=== PATIENT | female | born 1940 ===

== ENCOUNTER 2023-10-14 05:40 | Inpatient (IN) | payer MEDICARE, MEDICAID, SELFPAY ==
[2023-10-14] VITALS (10 sets, daily range): BP systolic 107–136; BP diastolic 57–86; BMI 27.3; BMI 26.4
[2023-10-14 03:40] LABS: % Basophils 0.9 % (0-2); % Eosinophils 4.4 % (0-6); % Immature Granulocytes 0.3 % (0-0.5); % Neutrophils 60.4 % (42.2-75.2); Absolute Basophils 0.1 10^3/uL (0-0.2); Absolute Eosinophils 0.3 10^3/uL (0-0.7); Absolute Monocytes 0.6 10^3/uL (0.1-0.6); Absolute Neutrophils 4.6 10^3/uL (1.4-6.5); Hematocrit 34.7 % (37.0-47.0); Hemoglobin 11.8 g/dL (12.0-16.0); Mean Corpuscular Volume 88.3 fL (81.0-99.0); Mean Platelet Volume 9.8 fL (7.4-10.4); Nucleated Red Blood Cells % 0 %; Platelet Count 289 10^3/uL (130-400); Red Blood Cell Count 3.93 10^6/uL (4.20-5.40); Red Cell Dist. Width 14.2 % (11.5-14.5); White Blood Cell Count 7.6 10^3/uL (4.8-10.8)
[2023-10-14 03:54] LABS: ALT (SGPT) 22 U/L (0-35); AST (SGOT) 42 U/L (14-36); Albumin 4.1 g/dl (3.5-5.0); Alkaline Phosphatase 78 U/L (38-126); Blood Urea Nitrogen 34 mg/dl (7-17); Calcium 9.7 mg/dl (8.4-10.2); Carbon Dioxide 23 mmol/L (22-30); Chloride 107 mmol/L (98-107); Estimated Creatinine Clearance 30 ml/min; Glucose 146 mg/dl (70-99); Potassium 4.2 mmol/L (3.5-5.1); Sodium 138 mmol/L (135-145); Total Bilirubin 0.5 mg/dl (0.2-1.3); Total Protein 7.4 g/dl (6.3-8.2)
[2023-10-14 04:00] LABS: Troponin I 0.613 ng/ml
[2023-10-14] MEDS: NITRO-BID 1 INCH TOPICAL (04:24)
[2023-10-14] MEDS: LOW STRENGTH ASPIRIN 324 MG PO (04:25)
[2023-10-14 04:29] LABS: APTT 30.7 Sec (23.4-35.0)
--- NOTE | 2023-10-14 04:46 | ED.GENMED ---
History of Present Illness
General
Chief Complaint: Chest Problem
Source: patient, ambulance crew and assisted
Exam Limitations: dementia
Time Seen by Provider: 10/14/23 03:30
Nursing documentation reviewed up to this point in time: agreed with
Travel History
Have you had any contact with someone who has COVID-19?: No
Do you have any symptoms of coronavirus? Fever > 100 degrees, chills, cough, shortness of breath, sore throat, loss of taste or smell, muscle aches, or headache?: No
History of Present Illness
History of Present Illness:
This is an 83-year-old woman with history of hypertension, hyperlipidemia, bvs-sfftmjv-nawbfhmet diabetes as well as history of dementia. Current resident of local assisted since April of this year.
She is sent to the ED by assisted staff after patient complained of severe chest pain. Upon EMS arrival patient offers no complaints to EMS and she remains chest pain-free since arrival to the ED.
She denies shortness of breath, denies chest pain currently, denies nausea, denies neck nor back pain.
According to assisted records no prior history of CAD.
Patient believes she may have had a previous episode of similar chest pain but cannot recall but currently denies chest pain.
According to assisted records she is DNR status.
Past History
Past History
ED Past Medical History: CVA, HTN, Hypercholesterolemia, NIDDM, Renal failure (Chronic kidney disease stage III), Psychiatric and Other (Overactive bladder, dementia, peripheral vascular disease)
Social History
Tobacco: Non-smoker
Living: assisted
Family History
Family History: Other (Noncontributory)
Phy Exam
Physical Exam
Physical Exam:
GENERAL: 83-year-old somewhat frail appearing woman is bright and alert, pleasant, appears in no acute distress. She is answering yes and no questions appropriately and is easily conversant.
EYE: anicteric
NECK: Supple, nontender, no meningismus, no significant adenopathy. No JVD.
ENT: oral mucosa is moist. No rhinorrhea.
CARDIAC: Regular rate and rhythm. no murmur.
LUNGS: Mildly decreased breath sounds at bases otherwise lungs are clear to auscultation, no acute respiratory distress
ABDOMEN: Rotund, soft, nondistended, without focal tenderness, no r/g, normoactive BS.
NEUROLOGICAL: Alert and oriented x1, no focal neuro deficits.
SKIN: Warm and dry, minimally pale in color, skin intact. No rash.
MUSCULOSKELETAL: Trace pretibial edema bilateral lower extremities, peripheral pulses are full and equal b/l. No palpable tenderness.
PSYCH: Normal and appropriate interaction.
Scores
Heart Score for Chest Pain Patients
STEMI patient?: No
History: Moderately Suspicious
ECG: Significant ST-Depression
Age: >/= 65 years
Risk Factors: >/= 3 Risk Factors or History of CAD
Troponin: >/= 3 x Normal Limit
Heart Score for Chest Pain Patients: 9
Heart Score Risk: 72.7 % MACE over next 6 weeks
Course
Orders/Labs/Results
Orders:
Orders
10/14/23 03:06
Electrocardiogram (*1) Urgent
Reason for Study: Chest Pain
Cardiac Monitoring- Treatment ONCE
EKG- Treatment ONCE
10/14/23 03:13
CMP [Comprehensive Metabolic Panel] Urgent
Complete Blood Count/With Diff Urgent
NT-proBNP Urgent
Comment: ADD ON
Troponin I Urgent
10/14/23 04:08
PTT Urgent
10/14/23 04:13
Aspirin Chewable [Low Strength Aspirin] 324 mg PO NOW STA
Nitroglycerin Ointment [Nitro-Bid] 1 inch TOPICAL NOW STA
10/14/23 04:15
Electrocardiogram (*1) Urgent
Reason for Study: Chest Pain
EKG- Treatment ONCE
CR Chest - 2 Views Urgent
Comment:
Reason For Exam: CP
10/14/23 04:32
Add On- LAB Urgent
Tests Added?: BNP
10/14/23 04:40
Heparin 4,000 units IV NOW STA
10/14/23 04:[address] Non Medication Order As Directed
Physician Order: PTT 6 hours after initial start of Heparin infusion
Above order entered?: Yes
10/14/23 04:45
Heparin 45398 Units/250 ml 25,000 units in 250 ml IV PER PROTOCOL
Weight to be used for heparin protocol in kilograms (kg):: 70
Protocol:: Cardiac Tx/Acute Coronary
PTT Goal Range to be used:: PTT 73 to 111 seconds
Order type:: Initial
INITIAL Infusion Dose (UNITS/KG/hr) & then follow protocol:: 12 units/kg/hr
Infusion Dose in UNITS/hr & then follow protocol (UNITS/hr):: 850
INFUSION RATE in mL/hr & then follow protocol (mL/hr):: 8.5
PTT less than or equal to 64 seconds:: Increase rate by 200 units/hr (+ 2 mL/hr)
PTT 64.1 to 72.9 seconds:: Increase rate by 100 units/hr (+ 1 mL/hr)
PTT 73 to 111 seconds:: Target Range. No change in rate.
PTT 111.1 to 130.9 seconds:: Decrease rate by 100 units/hr (- 1 mL/hr)
PTT 131 to 199.9 seconds:: HOLD for 1 hr. Then decrease rate by 200 units/hr (- 2 mL/hr)
PTT greater than or equal to 200 seconds:: HOLD for 2 hrs & Notify Provider. Then decrease by 200 units/hr (-
2 mL/hr)
Lab follow-up:: Each change, PTT q6h until 2 consecutive are therapeutic. Then PTT
daily.
10/14/23 05:19
Admit/Transfer Patient As Directed
Co-Sign Provider:
Level of Care: Inpatient admission
Assign to:: IVU
Physician / Group: [email or web address]
Diagnosis: acute NSTEMI
Reason for Hospitalization: acute NSTEMI
Expected length of stay greater than two midnights?: Yes
ELOS- Estimated Length of Stay in days: 3
I certify the patient meets the requirements for IP care: Yes
10/14/23 05:21
Code Status As Directed
Resuscitation Status: Full Code
10/14/23 05:26
Code Status As Directed
Resuscitation Status: Do not resuscitate
Based on pt advanced directive or healthcare POA form: Yes
DNR Bracelet Application ONCE
10/14/23 11:15
PTT Urgent
Abnormal Lab Results
10/14/23
03:13
RBC 3.93 L 10^6/uL
(4.20-5.40)
Hgb 11.8 L g/dL
(12.0-16.0)
Hct 34.7 L %
(37.0-47.0)
BUN 34 H mg/dl
(7-17)
Creatinine 1.3 H mg/dL
(0.6-1.0)
Glucose 146 H mg/dl
(70-99)
AST 42 H U/L
(14-36)
Troponin I 0.613 H* ng/ml
10/14/23 03:13
10/14/23 03:13
Vital Signs
Initial and Last Documented VS:
Initial Vital Signs
Temp Pulse Resp BP Pulse Ox
98 F 67 12 132/73 97
10/14/23 03:10 10/14/23 03:10 10/14/23 03:10 10/14/23 03:10 10/14/23 03:10
Last Documented Vital Signs
Temp Pulse Resp BP Pulse Ox
98 F 64 12 136/61 96
10/14/23 03:10 10/14/23 04:24 10/14/23 03:10 10/14/23 04:24 10/14/23 03:43
MDM/Problems Addressed
Differential Diagnosis Includes:
Elderly assisted patient with history of dementia presents via EMS with reported complaints of chest pain. She remains chest pain-free for EMS and since arrival to the ED.
EKG concerning for minimal ST segment elevation inferiorly without reciprocal changes. No old EKGs to compare.
It is reassuring the patient is chest pain-free but there is certainly concern for acute coronary syndrome. Other consideration is GERD, pneumonia, CHF, musculoskeletal pain.
Labs are pending.
Chronic conditions affecting care: DM, HTN, Neurological disorder, Kidney disease and Other (Hyperlipidemia)
*Radiology
Radiology exam reviewed: preliminary read by ED provider (Chest x-ray is unremarkable. No old films to compare.)
*Pulse Oximetry
Patient hypoxic: yes
*EKG
Interpreted by ED Provider?: Yes
Interpretation: abnormal
Comparison EKG: no comparison EKG present
Rate: normal
Rhythm: sinus
[place]: normal axis
Interval: normal interval
QRS Pattern: other (Incomplete right bundle branch block)
Ischemia: ST elevation ( Minimal ST segment elevation inferiorly without reciprocal changes.)
*Pie Baker Interpretation
Rate: normal
Interpretation: normal
Rhythm: sinus
*Critical Care Note
Total Time (30-74mins, 75-104mins- exclusive of procedures): 30
comment:
Critical care statement: A total of 30 minutes of critical care time was provided for this patient. This includes management of unstable vital signs, evaluation of the patient at bedside, reviewing the patient's pertinent medical records, discussion
with consultants, review of old EKGs and review of pertinent medical records. This time with separate from time utilized to perform the aforementioned documented procedures
Update Note
Update Note:
Troponin is elevated at 0.613 consistent with non-STEMI.
Patient remains chest pain-free and comfortable.
She is noted to be mildly hypoxic more so with sleeping, nasal cannula oxygen initiated. She denies shortness of breath and lungs are clear to auscultation however not taking good deep breath.
Chest x-ray is pending. Will add BNP.
Case discussed with cardiology as well as cardio invasive. As patient is pain-free, advanced age, DNR status and borderline EKG, Dr. Duran recommends conservative management.
Patient has been given 324 mg chewable aspirin and Nitropaste initiated. Will initiate IV heparin.
Due to multiple medical issues, cardiology request patient be admitted to hospitalist service with consult to cardiology.
ED Attending Note
-
Portions of this chart may have been created with voice recognition software.� Occasional wrong word or��sound alike� substitutions may have occurred due to the inherent limitations of voice recognition software.
Discharge Plan
Departure
Patient Disposition: Admit
Date of Disposition: 10/14/23
Time of Disposition: 04:56
Admit to: IVU
Admit to doctor: Nadegey
Presentation/result/management discussed w/ accepting MD/DO: Hospitalist
Condition: Serious
Discharge Problem:
Acute non-ST elevation myocardial infarction (NSTEMI)
Interventions
Interventions:
*Risk Screen - Suicide Last Done: 10/14/23 03:10
*General Assessment Last Done: 10/14/23 03:10
*Neglect/Abuse Screening Last Done: 10/14/23 03:10
ED- Fall Risk Assessment Last Done: 10/14/23 03:43
*ED COVID-19 Vaccine History Last Done: 10/14/23 03:10
ED- Cardiac Assessment Last Done: 10/14/23 03:43
ED- Pulmonary Assessment Last Done: 10/14/23 03:43
[2023-10-14] MEDS: HEPARIN 4000 UNITS IV (05:09)
[2023-10-14] MEDS: HEPARIN 25000 UNITS/250 ML IV (05:10)
[2023-10-14 05:15] LABS: NT-proBNP 544 pg/ml
--- NOTE | 2023-10-14 05:27 | HPS.HSE ---
Family Physician
-
Family Physician: Dion Rabago, DO
Chief Complaint
-
CP
History of Present Illness
HPI
83F [facility] Res with Dementia [facility] HX CVA, HTN, HLD, T2DM , CKD3b pw severe chest pain. Upon EMS arrival patient offers no complaints. She remains chest pain-free since arrival to the ED.
[facility] to [facility] no prior history of CAD.
According to [facility] records she is DNR status.
ROS
No shortness of breath
Denies chest pain currently, denies nausea, denies neck nor back pain.
Medical History
Past Medical History
Past Medical History: Reports Other (CVA, HTN, Hypercholesterolemia, NIDDM, Renal failure (Chronic kidney disease stage III), )
Past Surgical History: Reports Other
Additional Past Surgical History:
(Overactive bladder, dementia, peripheral vascular disease)
Social History
Tobacco: Non-smoker
Living: [facility]
Family History
Family History: Not pertinent
Allergies / Home Medications
Allergies reflects when Allergies were last updated in [facility].
Home Medications with original date entered in [facility]
Allergy/Medication List:
Allergies
Allergy/AdvReac Type Severity Reaction Status Date / Time
No Known Allergies Allergy Unverified 10/14/23 03:34
Home Medications
acetaminophen 325 mg tablet 650 mg PO Q4H PRN pain/fever 10/14/23
bisacodyl 10 mg rectal suppository 10 mg NJ DAILY PRN no BM 10/14/23
escitalopram oxalate 10 mg tablet 10 mg PO DAILY 10/14/23
gabapentin 100 mg capsule 100 mg PO DAILY 10/14/23
lorazepam 0.5 mg tablet (Ativan) 0.5 mg PO TID PRN anxiety 10/14/23
magnesium hydroxide 400 mg/5 mL oral suspension (Milk of Magnesia) 15 ml PO HS PRN constipation 10/14/23
mirtazapine 15 mg tablet 15 mg PO DAILY 10/14/23
pravastatin 20 mg tablet 20 mg PO DAILY 10/14/23
vibegron 75 mg tablet 75 mg PO DAILY 10/14/23
Review of Systems
-
Constitutional: Reports No Symptoms
EENT: Reports No Symptoms
Respiratory: Reports No Symptoms
Cardiac: Reports Chest Pain
Abdomen/GI: Reports No Symptoms
: Reports No Symptoms
Musculoskeletal: Reports No Symptoms
Skin: Reports No Symptoms
Neurological: Reports No Symptoms
Endocrine: Reports No Symptoms
Hematologic/Lymphatic: Reports No Symptoms
Psych: Reports No Symptoms
Physical Exam
Vital Signs
Vital Signs
Temp Pulse Resp BP Pulse Ox
98 F 64 12 136/61 96
10/14/23 03:10 10/14/23 04:24 10/14/23 03:10 10/14/23 04:24 10/14/23 03:43
Physical Exam
General: Other (see below )
Laboratory Results
-
10/14/23 03:13
10/14/23 03:13
Laboratory Results
APTT 30.7 Sec (23.4-35.0) 10/14/23 04:08
Total Bilirubin 0.5 mg/dl (0.2-1.3) 10/14/23 03:13
AST 42 U/L (14-36) H 10/14/23 03:13
ALT 22 U/L (0-35) 10/14/23 03:13
Alkaline Phosphatase 78 U/L (38-126) 10/14/23 03:13
Troponin I 0.613 ng/ml H* 10/14/23 03:13
Data Reviewed
-
Medical Tests (Nuc Med, Echo, EKG etc): Report Reviewed by me
Lab Data: Labs Reviewed by me
Impression/Plan
-
Reviewed VS: unremarkable
PE
Gen: NAD
HEENT: anicteric , no pallor
Neck: supple , no JVD
Lungs: symmetric AE
Cor: RRR S1 S2
Abdomen: soft abdomen , NT NG
INTAKE ASSESSOR: Alert
MS: edema
Psych: pleasantly confused
Data
Hgb 11.8
BUN 34
Cr 1.3 - was 1.5 om 04/16/23 CKD3b
eGFR 40
TPNI 0.613
EKG:
SINUS RHYTHM WITH 1ST DEGREE A-V BLOCK
INCOMPLETE RIGHT BUNDLE BRANCH BLOCK
INFERIOR INFARCT , AGE UNDETERMINED
ABNORMAL ECG
WHEN COMPARED WITH ECG OF 14-OCT-2023 03:10,
INFERIOR INFARCT IS NOW PRESENT
CXR pending report - no gross PNA by my view
No prior hospitalist admission:
ASSESSMENT & PLAN
Acute NSTEMI - currently CP free
ER initiated ASA and Heaprin gtt and consulted Card / Dr Duran
- cont. ASA and Heparin gtt
- cont. NTP
- on TOUR COUNSELOR Pravastatin
- ECHO
- NPO in case cariac cath '
Chronic condition:
CVA; Not active
Essential HTN: stable
Hypercholesterolemia on Stain
NIDDM: add ISS low
CKD3b
DVT Px: on Heparin gtt
Full code
IVU
--- NOTE | 2023-10-14 06:37 | PTCARENOTE ---
Pt rec'd from ED on stretcher. Disoriented to time and place unable to complete thoughts. bed alarm placed. 2nd troponin and ecg completed. pt denies cp. RA sat 99-100% on 2 lit nc/ O2 removed. IV heparin infusing at 850 units/hr. Adm hx taken from
[facility].
--- NOTE | 2023-10-14 07:45 | CON.CAR ---
Addendum entered and electronically signed by Doc Arizmendi MD 10/14/23 11:00:
I saw and examined the patient.
The Protective Service Specialist's note was reviewed and I agree with the note.
Comment:
GEN: No distress, awake
HEENT: supple, anicteric, mmm
LUNGS: CTA, no wheezes/rales
CV: Reg, S1/S2, 1/6 syst LSB, no gallop
ABD: soft, BS+, NT/ND
EXT: No edema
NEURO: Gross non-focal
SKIN: No rash
Plan:
Patient has a past medical history of dementia, hyperlipidemia, and tobacco abuse who resides at [facility] who presented with chest pains and a non-ST elevation myocardial infarction. Discussions were had with the family and they
prefer a conservative medical treatment plan for her coronary artery disease.
EKG with nonspecific anterior ST abnormalities.
Check echocardiogram.
Continue IV heparin for 24 hours then discontinue. Continue aspirin and Plavix. Would treat with Plavix for 6 months as long as she has no significant bleeding issues. She should continue lifelong aspirin.
Will check lipids would likely switch to high-dose atorvastatin. Goal LDL should be 70 or below.
Continue Toprol 12.5 mg daily. If blood pressure tolerates we will add ROSS inhibitor.
proBNP 544. She has no clear signs of volume overload.
Original Note:
Consultation
Consultation Request
Date/Time Consultation Requested: 10/14/23 at 0614
Date/Time Consultation Performed: 10/14/23 at 0742
Requesting Provider: Dr. Tyler
Performing Provider: Dr. Brennan
Reason for Consultation: NSTEMI
Medical History
-
History of Present Illness:
Patient came to [facility] from [facility] with chest pain and is now admitted with a NSTEMI and cardiology has been consulted. Patient lives at [facility] and has dementia. By review of transfer record, patient complained of chest pain that woke her from sleep very
early this morning. Patient does not usually complain of chest pain. Patient described the pain as an intense burning, but no SOB. [facility] staff called 911 and upon arrival of EMS the patient was pain free. Patient came to [facility] and ECG without ST
elevations, but initial Troponin was 0.613. No recurrence of chest pain since admission. Heparin gtt started in ER and patient was given aspirin 324 mg PO x1. Patient does not recall her episode of chest pain and does not know where she is. Called
and talked with patient's daughter, Hayley, and she reports that patient has dementia and at times thinks her daughter is actually her sister. Aside from significant memory issues the patient does not have much PMH and her daughter denies a h/o
CAD or DM2. Patient takes pravastatin for hyperlipidemia.
PMH:
Hyperlipidemia
Former smoker
Past Medical History
Past Medical History: Other (in HPI)
Past Surgical History: Other (cataracts)
Social History
Tobacco: Former Smoker
Alcohol: None
Drug: None
Living: Jail ([facility])
Family History
Family History: Diabetes
Allergies / Home Medications
Allergy/AdvReac Type Severity Reaction Status Date / Time
No Known Allergies Allergy Unverified 10/14/23 03:34
Medication Instructions Recorded Confirmed Type
acetaminophen 325 mg tablet 650 mg PO Q4H PRN pain/fever 10/14/23 10/14/23 History
bisacodyl 10 mg rectal suppository 10 mg TN DAILY PRN no BM 10/14/23 10/14/23 History
escitalopram oxalate 10 mg tablet 10 mg PO DAILY 10/14/23 10/14/23 History
gabapentin 100 mg capsule 100 mg PO DAILY 10/14/23 10/14/23 History
lorazepam 0.5 mg tablet (Ativan) 0.5 mg PO TID PRN anxiety 10/14/23 10/14/23 History
magnesium hydroxide 400 mg/5 mL 15 ml PO HS PRN constipation 10/14/23 10/14/23 History
oral suspension (Milk of Magnhenrietta)
mirtazapine 15 mg tablet 15 mg PO DAILY 10/14/23 10/14/23 History
pravastatin 20 mg tablet 20 mg PO DAILY 10/14/23 10/14/23 History
vibegron 75 mg tablet 75 mg PO DAILY 10/14/23 10/14/23 History
Review of Systems
-
History Source: Patient and Family (daughter, Hayley, by phone)
All other systems: Negative unless noted
Physical Exam
Vital Signs
Temp Pulse Resp BP Pulse Ox
97.4 F 59 16 128/70 98
10/14/23 06:53 10/14/23 06:53 10/14/23 06:53 10/14/23 06:09 10/14/23 06:53
GEN: NAD. AAO to self, no recollection of events leading up to admission
HEENT: EOMI, MMM
LUNGS: CTA B/L with poor inspiratory effort, no wheezes or rales
CV: Reg, S1/S2, no murmur
ABD: soft, BS+, NT, ND
EXT: No clubbing, cyanosis, lesions or edema B/L
NEURO: Gross non-focal
SKIN: Warm, dry and pink. No rash
Lab Results
10/14/23 03:13
10/14/23 03:13
Troponin I 1.490 ng/ml H* D 10/14/23 06:30
Xoy-L-Gypciwndcmg Pept 544 pg/ml 10/14/23 03:13
Impression / Plan
-
PCP: Dr. Dion Rabago
Cardiology: none
Impression:
Chest pain
NSTEMI, Troponin 1.49 and trending
Hyperlipidemia
Former smoker
Echo 10/14/23: Study pending
Plan:
-Patient came to [facility] from [facility] with chest pain and is now admitted with a NSTEMI and cardiology has been consulted. Patient lives at [facility] and has dementia. By review of transfer record, patient complained of chest pain that woke her from sleep very
early this morning. Patient does not usually complain of chest pain. Patient described the pain as an intense burning, but no SOB. [facility] staff called 911 and upon arrival of EMS the patient was pain free. Patient came to [facility] and ECG without ST
elevations, but initial Troponin was 0.613. No recurrence of chest pain since admission. Heparin gtt started in ER and patient was given aspirin 324 mg PO x1. Patient does not recall her episode of chest pain and does not know where she is. Called
and talked with patient's daughter, Hayley, and she reports that patient has dementia and at times thinks her daughter is actually her sister. Aside from significant memory issues the patient does not have much PMH and her daughter denies a h/o
CAD or DM2. Patient takes pravastatin for hyperlipidemia.
-Talked with patient's daughter, Hayley, for 9 minutes this morning. Reviewed admission thus far including NSTEMI diagnosis. Reviewed pateint's baseline dementia and options for management including medical management which patient's daughter is
agreeable to.
-Trend Troponin to peak
-Patient is pain free. Cont Heparin gtt.
-Start aspirin 81 mg daily, ordered by me
-Start Plavix 75 mg daily for 6 months of therapy. Patient is a DNR and family is agreeable to medical therapy.
-Start Toprol XL 12.5 mg daily and hold for HR less than 50 or SBP less than 100, ordered by me
-Check echo
-Repeat ECG in AM
-Check CVE and continue outpatient dose of pravastatin 20 mg daily for now. Can change statin pending CVE
-Patient is not a candidate for cardiac rehab given baseline dementia and living at [facility].
-Pending BP response to Toprol XL consider adding ROSS
-HgbA1c pending. Patient's daughter denies a h/o DM 2.
[2023-10-14 08:37] LABS: Glycohemoglobin (HgbA1c) 6.6 % (4.0-5.6)
--- NOTE | 2023-10-14 08:37 | PTCARENOTE ---
Rec'd pt from [facility] shift AAOx1 to self only; Pt is confused to time & place at baseline. Pt's VS stable & has no c/o CP at this time. Heparin drip infusing as ordered. IV line wrapped for protection as pt repeatedly is trying remove IV line. Bed
alarm in place & pt making multiple attempts to get OOB unassisted & she is a fall & flight risk. This RN spoke w/pt's son briefly after he rec'd a call from [facility] that pt was admitted. Osvaldo toribio ordered & set up for pt safety. Plan of care
ongoing.
--- NOTE | 2023-10-14 09:08 | W.PN.HOSP.TC ---
Today's Communication/Plan
-
Continue current meds
Assessment / Plan
Assessment / Plan
Gen-awake, alert, not oriented, NAD
HEENT-NC, AT, anicteric, clear oral mm
Neck-supple
CV-reg, no M, +S1/S2
Lungs-clear B/L
Abd-soft, NT, ND
Ext-no edema
Musculoskeletal-no cyanosis, clubbing
Skin-warm and dry
Neuro-grossly non-focal
Psych-calm, cooperative
NSTEMI -continue medical management. Cardiology consulted. No plans for aggressive intervention given her advanced age, dementia. Troponin is still trending up.
Hyperlipidemia -on Pravachol.
History of stroke
Essential hypertension -stable.
DM2 without hyperglycemia - appears to be a new diagnosis for her, although her hemoglobin A1c was 6.6% in April of last year. Given her advanced age and dementia, would manage with diet alone.
Normocytic anemia -suspect chronic. Unclear etiology.
CKD 3b -stable.
Overactive bladder
Dementia, likely Alzheimer's type
PAD
Smoking history
DNR
Dispo -anticipate discharge back to care home tomorrow if she remains stable. Discussed with cardiology.
Anticipated Discharge: Within 24 hours
Subjective/Interval History
-
Date of Service: October 14, 2023
Patient seen and examined. No complaints currently.
Objective Data
-
Labs:
Laboratory Results
10/14/23 10/14/23 10/14/23
03:13 04:08 11:15
WBC 7.6
Hgb 11.8 L
Hct 34.7 L
Plt Count 289
APTT 30.7 Pending
Sodium 138
Potassium 4.2
Chloride 107
Carbon Dioxide 23
BUN 34 H
Creatinine 1.3 H
Glucose 146 H
Calcium 9.7
Total Bilirubin 0.5
AST 42 H
ALT 22
Alkaline Phosphatase 78
Vital Signs:
Vital Signs
Temp Pulse Resp BP Pulse Ox
97.4 F 72 16 129/60 98
10/14/23 06:53 10/14/23 08:30 10/14/23 06:53 10/14/23 06:54 10/14/23 06:53
Review of Systems
-
Unable to obtain full review of systems at this time due to: Dementia
History Source: Patient
All other systems: Reviewed and negative
[2023-10-14 09:22] LABS: Glucose - Point of Care 101 mg/dl (70-99)
[2023-10-14] MEDS: NOVOLOG FLEXPEN-LOW RESISTANCE SC (09:25)
[2023-10-14] MEDS: PRAVACHOL 20 MG PO (09:26)
[2023-10-14] MEDS: LEXAPRO 10 MG PO (09:26)
[2023-10-14] MEDS: NEURONTIN 100 MG PO (09:26)
[2023-10-14] MEDS: REMERON 15 MG PO (09:26)
[2023-10-14] MEDS: TOPROL XL 12.5 MG PO (09:27)
[2023-10-14 09:43] LABS: HDL Cholesterol 35 mg/dl; LDL Cholesterol, Calculated 111 mg/dl; Total Cholesterol 186 mg/dl (50-199); Triglyceride 203 mg/dl (10-149); Very Low Density Lipoprotein 40 mg/dl (0-30)
--- NOTE | 2023-10-14 11:34 | CM ---
Chart reviewed. Patient is currently a resident at [facility]. They are holding her bed. I spoke to the daughter, Hayley, and she will let us know if her brother will be transporting her back or if we will need to set up a
wheelchair van. The patient does not need a covid swab to return. Plan is for the patient to go to [facility]. CM to follow
--- NOTE | 2023-10-14 12:04 | W.PN.UPDATE ---
Update Note
Progress Note Update
Patient's son now present and updated by me. Echo bedside and EF overall preserved. Son is pharmacist so reviewed meds and he was in agreement. Son also tells me that his brother, the patient's son, recently and they did not tell patient
so as to not upset her, but they wonder if she found out.
[2023-10-14 13:11] LABS: Glucose - Point of Care 163 mg/dl (70-99)
[2023-10-14] MEDS: NOVOLOG FLEXPEN-LOW RESISTANCE 1 UNITS SC ×2 (13:45→17:42)
[2023-10-14 14:42] LABS: APTT 70.7 Sec (23.4-35.0)
[2023-10-14 17:16] LABS: Glucose - Point of Care 150 mg/dl (70-99)
[2023-10-14] MEDS: ATIVAN 0.5 MG PO (17:42)
--- NOTE | 2023-10-14 17:51 | PTCARENOTE ---
Pt remains oriented to self only. Pt is beginning to show signs of sundowning & is becoming agitated w/staff calling out for her daughter & stating that her daughter was sent to visit her grandmother & is now missing. Pt states her daughter Emmanuelle
is 6yr old. Pt tearful at times w/concern. Emotional support provided by Rodney pitts & this RN. PRN PO Ativan administered as ordered. Pt OOB in , set up for dinner. Plan of care ongoing.
[2023-10-14 21:48] LABS: Glucose - Point of Care 222 mg/dl (70-99)
[2023-10-15 00:07] LABS: APTT 100.5 Sec (23.4-35.0)
--- NOTE | 2023-10-15 00:52 | PTCARENOTE ---
No complaints CP/discomfort, VSS, NSR on the monitor. Pt. confused and in need of frequent intervention (attempts to get OOB, pulls at monitor & IV). Pleasant and easily re-directed but forgetful. Med-sitter in room; bed alarm on.
[2023-10-15] MEDS: ATIVAN 0.5 MG PO (01:27)
[2023-10-15 01:31] VITALS: BP 139/65
[2023-10-15 06:11] LABS: Hematocrit 37.1 % (37.0-47.0); Hemoglobin 12.1 g/dL (12.0-16.0); Mean Corp Hgb Conc. 32.6 g/dL (33.0-37.0); Mean Corpuscular Hgb 29.7 pg (27.0-31.0); Mean Corpuscular Volume 91.2 fL (81.0-99.0); Mean Platelet Volume 9.9 fL (7.4-10.4); Platelet Count 272 10^3/uL (130-400); Red Blood Cell Count 4.07 10^6/uL (4.20-5.40); Red Cell Dist. Width 14.3 % (11.5-14.5); White Blood Cell Count 8.5 10^3/uL (4.8-10.8)
[2023-10-15 06:36] LABS: ALT (SGPT) 26 U/L (0-35); AST (SGOT) 87 U/L (14-36); Albumin 3.9 g/dl (3.5-5.0); Alkaline Phosphatase 71 U/L (38-126); Blood Urea Nitrogen 27 mg/dl (7-17); Carbon Dioxide 27 mmol/L (22-30); Chloride 103 mmol/L (98-107); Estimated Creatinine Clearance 31 ml/min; Glucose 122 mg/dl (70-99); Potassium 4.4 mmol/L (3.5-5.1); Sodium 140 mmol/L (135-145); Total Bilirubin 0.5 mg/dl (0.2-1.3); Total Protein 7.1 g/dl (6.3-8.2); eGFR 49.24
[2023-10-15 07:43] VITALS: BP 126/63
[2023-10-15 07:46] LABS: Glucose - Point of Care 137 mg/dl (70-99)
--- NOTE | 2023-10-15 08:51 | W.PN.HOSP.TC ---
Addendum entered and electronically signed by Siva Tyler DO 10/15/23 11:22:
I spoke with cardiology team, they are okay with discharge home. Outpatient follow-up.
Original Note:
Today's Communication/Plan
-
Await cardiology input
Assessment / Plan
Assessment / Plan
Gen-awake, alert, not oriented, NAD
HEENT-NC, AT, anicteric, clear oral mm
Neck-supple
CV-reg, no M, +S1/S2
Lungs-clear B/L
Abd-soft, NT, ND
Ext-no edema
Musculoskeletal-no cyanosis, clubbing
Skin-warm and dry
Neuro-grossly non-focal
Psych-calm, cooperative
NSTEMI -continue medical management. Cardiology consulted. No plans for aggressive intervention given her advanced age, dementia. Troponin has peaked. Anticipate discharge on dual antiplatelet therapy. Heparin discontinued. Echocardiogram
shows normal LV function. Indeterminate diastolic function.
Hyperlipidemia -on Pravachol.
History of stroke
Essential hypertension -stable.
DM2 without hyperglycemia - appears to be a new diagnosis for her, although her hemoglobin A1c was 6.6% in April of last year. Given her advanced age and dementia, would manage with diet alone.
Normocytic anemia -suspect chronic. Unclear etiology. Hemoglobin spontaneously improved to 12.1 today.
CKD 3b -stable.
Overactive bladder
Dementia, likely Alzheimer's type
PAD
Smoking history
DNR
Dispo -anticipate discharge back to [facility] today if okay with cardiology.
Anticipated Discharge: Today
Subjective/Interval History
-
Date of Service: October 15, 2023
Patient seen and examined. No complaints.
Objective Data
-
Labs:
Laboratory Results
10/14/23 10/15/23
23:41 05:43
WBC 8.5
Hgb 12.1
Hct 37.1
Plt Count 272
APTT 100.5 H 109.0 H
Sodium 140
Potassium 4.4
Chloride 103
Carbon Dioxide 27
BUN 27 H
Creatinine 1.1 H
Glucose 122 H
Calcium 10.0
Total Bilirubin 0.5
AST 87 H
ALT 26
Alkaline Phosphatase 71
Vital Signs:
Vital Signs
Temp Pulse Resp BP Pulse Ox
97.5 F 65 20 139/65 97
10/15/23 07:40 10/15/23 01:31 10/15/23 07:40 10/15/23 01:31 10/15/23 07:40
I&O
10/14/23 10/15/23 10/16/23
06:59 06:59 06:59
Intake Total 1440 / 1440
Balance 1440 / 1440
Review of Systems
-
Unable to obtain full review of systems at this time due to: Dementia
History Source: Patient
All other systems: Reviewed and negative
[2023-10-15] MEDS: NOVOLOG FLEXPEN-LOW RESISTANCE SC (09:14)
[2023-10-15] MEDS: LEXAPRO 10 MG PO (09:16)
[2023-10-15] MEDS: NEURONTIN 100 MG PO (09:16)
[2023-10-15] MEDS: TOPROL XL 12.5 MG PO (09:16)
[2023-10-15] MEDS: LOW STRENGTH ASPIRIN 81 MG PO (09:16)
[2023-10-15] MEDS: PLAVIX 75 MG PO (09:19)
[2023-10-15] MEDS: REMERON PO (10:00)
[2023-10-15] MEDS: PRAVACHOL PO (10:15)
--- NOTE | 2023-10-15 11:18 | W.PN.CARDCBS ---
Addendum entered and electronically signed by Doc Arizmendi MD 10/15/23 13:16:
I saw and examined the patient.
The [employer] Developer's note was reviewed and I agree with the note.
Comment:
GEN: No distress, awake,
HEENT: supple, anicteric, mmm
LUNGS: CTA, no wheezes/rales
CV: Reg, S1/S2, 1/6 syst LSB, no gallop
ABD: soft, BS+, NT/ND
EXT: No edema
NEURO: Gross non-focal
SKIN: No rash
Plan:
Doing well and no chest pains or shortness of breath. No signs of congestive heart failure. Continue aspirin.
Continue Plavix for 6 months.
Continue Toprol and lisinopril.
Pravastatin switch to atorvastatin 40 mg daily.
Will arrange cardiology follow-up.
Original Note:
Today's Communication / Plan
-
Plavix 75 mg daily for 6 months
Aspirin 81 mg daily lifelong
Toprol XL 12.5 mg daily
lisinopril 2.5 mg daily
Pravastatin changed to atorvastatin 40 mg daily
Will arrange cardiology f/u
Impression / Plan
-
PCP: Dr. Dion Rabago
Cardiology: none
Impression:
Chest pain
NSTEMI, peak Troponin 11.5
Hyperlipidemia
Former smoker
Echo 10/14/23: EF 55-60%, no WMA
Plan:
-Patient has not complained of chest pain since admission, but admittedly has underlying dementia and is not a good historian. Troponin peaked at 11.5. EF preserved by echo. No arrhythmia on tele.
-Patient's son and daughter are in the room 10/15/23 AM. Updated both at patient's bedside. Reviewed medication changes including addition of Toprol XL 12.5 mg daily.
-Also new to lisinopril 2.5 mg daily starting 10/15/23, will need BMP in 1 week.
-New to aspirin 81 mg daily and Plavix 75 mg daily this admission. Will plan on DAPT with aspirin and Plavix 75 mg daily for 6 months (until 04/14/24) then stop Plavix, but continue with aspirin alone.
-LDL 111. Outpatient dose of pravastatin transitioned to atorvastatin 40 mg daily. Check CVE and CMP in 3 months.
-Patient is not a candidate for cardiac rehab given baseline dementia and living at [facility].
-HgbA1c 6.6%. Patient's daughter denies a h/o DM 2.
-Patient is stable for transfer back to [facility] 10/15/23. Will arrange for cardiology f/u
HPI: Patient came [facility] from [facility] with chest pain and is now admitted with a NSTEMI and cardiology has been consulted. Patient lives at [facility] and has dementia. By review of transfer record, patient complained of chest pain that woke her from sleep
very early this morning. Patient does not usually complain of chest pain. Patient described the pain as an intense burning, but no SOB. [facility] staff called 911 and upon arrival of EMS the patient was pain free. [facility] and ECG without ST
elevations, but initial Troponin was 0.613. No recurrence of chest pain since admission. Heparin gtt started in ER and patient was given aspirin 324 mg PO x1. Patient does not recall her episode of chest pain and does not know where she is. Called
and talked with patient's daughter, Hayley, and she reports that patient has dementia and at times thinks her daughter is actually her sister. Aside from significant memory issues the patient does not have much PMH and her daughter denies a h/o
CAD or DM2. Patient takes pravastatin for hyperlipidemia.
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
Subjective
Date of Service: October 15, 2023
No complaints
Objective
Labs:
10/15/23 05:43
10/15/23 05:43
Labs
Hgb 12.1 g/dL (12.0-16.0) 10/15/23 05:43
Hct 37.1 % (37.0-47.0) 10/15/23 05:43
Plt Count 272 10^3/uL (130-400) 10/15/23 05:43
APTT 109.0 Sec (23.4-35.0) H 10/15/23 05:43
Sodium 140 mmol/L (135-145) 10/15/23 05:43
Potassium 4.4 mmol/L (3.5-5.1) 10/15/23 05:43
BUN 27 mg/dl (7-17) H 10/15/23 05:43
Creatinine 1.1 mg/dL (0.6-1.0) H 10/15/23 05:43
Glucose 122 mg/dl (70-99) H 10/15/23 05:43
Troponins
10/14/23 10/14/23 10/14/23
03:13 06:30 09:03
Troponin I 0.613 H* 1.490 H* D 4.210 H* D
10/14/23 10/14/23 10/15/23
13:57 23:41 05:43
Troponin I 9.090 H* D 11.500 H* 11.200 H*
Vital Signs and I&O:
Vital Signs
Temp Pulse Resp BP Pulse Ox
97.5 F 72 20 126/63 97
10/15/23 07:40 10/15/23 09:00 10/15/23 07:40 10/15/23 07:43 10/15/23 09:30
Vital Signs
Temp Pulse Resp BP Pulse Ox
97.5 F 72 20 126/63 97
10/15/23 07:40 10/15/23 09:00 10/15/23 07:40 10/15/23 07:43 10/15/23 09:30
Intake & Output
10/13/23 10/14/23 10/15/23 10/16/23
06:59 06:59 06:59 06:59
Intake Total 1440 / 1440 360 / 360
Output Total 400 / 400
Balance 1440 / 1440 -40 / -40
Physical Exam
Physical Exam
GEN: NAD. AAO to self only
HEENT: MMM
LUNGS: CTA B/L with poor inspiratory effort
CV: Reg
ABD: soft, BS+
EXT: No edema B/L
NEURO: Gross non-focal
SKIN: No rash
--- NOTE | 2023-10-15 11:24 | W.DS.TRANS ---
DC Summary - [employer]
-
Discharge Instructions:
Discharge Diagnosis/Procedures Acute myocardial infarction, type 2 diabetes
mellitus
Diet Low Fat,Low Cholesterol,Diabetic, Carb
Controlled
Activity As tolerated,With assistance
Driving Restrictions No driving
Bathing Restrictions None
Instructions:
Stand-Alone Forms:
Changes to Home Medications: No
Discharge Medications:
DC Medications w/original date entered in [employer]
acetaminophen 325 mg tablet 650 mg PO Q4H PRN pain/fever 10/14/23
bisacodyl 10 mg rectal suppository 10 mg WV DAILY PRN no BM 10/14/23
escitalopram oxalate 10 mg tablet 10 mg PO DAILY 10/14/23
gabapentin 100 mg capsule 100 mg PO DAILY 10/14/23
magnesium hydroxide 400 mg/5 mL oral suspension (Milk of Magnesia) 15 ml PO HS PRN constipation 10/14/23
mirtazapine 15 mg tablet 15 mg PO HS 10/14/23
pravastatin 20 mg tablet 20 mg PO DAILY 10/14/23
vibegron 75 mg tablet 75 mg PO DAILY 10/14/23
aspirin 81 mg chewable tablet (Children's Aspirin) 81 mg PO DAILY #0 tabs 10/15/23
atorvastatin 40 mg tablet 40 mg PO QPM #0 tabs 10/15/23
clopidogrel 75 mg tablet 75 mg PO DAILY #0 tabs 10/15/23
metoprolol succinate 25 mg tablet,extended release 24 hr 12.5 mg PO DAILY #0 tabs 10/15/23
Home Medication Changes
Pending Results: No
[2023-10-15 11:25] VITALS: BP 107/46
[2023-10-15 12:28] LABS: Glucose - Point of Care 106 mg/dl (70-99)
--- NOTE | 2023-10-15 13:01 | PTCARENOTE ---
Pt denies any discomfort, OOB to chair. Pt seen by Drs. Arizmendi and Jayson. Telemetry and IV device removed. Report called to Adair at [facility]. Discharge instructions given to son Adair. Pt escorted out via wheelchair and discharged with
her son back to [facility].
== END 2023-10-15 13:03 | DRG 282 ==
LOC: IVU 05:40
PROVIDERS: Internal Medicine Cardiovascular Disease; ADMITTING PHYSICIAN Internal Medicine; ATTENDING PHYSICIAN Hospitalist; EMERGENCY PHYSICIAN Emergency Medicine; FAMILY PHYSICIAN Student in an Organized Health Care Education/Training Program; OTHER PHYSICIAN Internal Medicine Cardiovascular Disease
DX: I21.4 Non-ST elevation (NSTEMI) myocardial infarction (principal); I12.9 Hypertensive chronic kidney disease with stage 1 through stage 4 chronic kidney disease, or unspecified chronic kidney disease; N18.32 Chronic kidney disease, stage 3b; E78.00 Pure hypercholesterolemia, unspecified; Z66 Do not resuscitate; F02.80 Dementia in other diseases classified elsewhere, unspecified severity, without behavioral disturbance, psychotic disturbance, mood disturbance, and anxiety; Z86.73 Personal history of transient ischemic attack (TIA), and cerebral infarction without residual deficits; Z87.891 Personal history of nicotine dependence; I25.10 Atherosclerotic heart disease of native coronary artery without angina pectoris; E11.22 Type 2 diabetes mellitus with diabetic chronic kidney disease; G30.9 Alzheimer's disease, unspecified; D63.1 Anemia in chronic kidney disease; E11.51 Type 2 diabetes mellitus with diabetic peripheral angiopathy without gangrene
CPT/HCPCS: 71046; 80053; 80061; 82962; 83036; 83880; 84484; 85025; 85027; 85730; 87070; 93005; 93306; 96365; 99291

== ENCOUNTER → 2023-10-22 11:06 | Outpatient (REF) | payer MEDICARE, MEDICAID, SELFPAY ==
[2023-10-22 12:01] LABS: Blood Urea Nitrogen 38 mg/dl (7-17); Calcium 9.7 mg/dl (8.4-10.2); Carbon Dioxide 23 mmol/L (22-30); Chloride 107 mmol/L (98-107); Glucose 122 mg/dl (70-99); Potassium 5.1 mmol/L (3.5-5.1); Sodium 137 mmol/L (135-145)
== END ==
LOC: OLABN 11:06
PROVIDERS: ATTENDING PHYSICIAN Student in an Organized Health Care Education/Training Program
DX: I10 Essential (primary) hypertension (principal)
CPT/HCPCS: 36415; 80048

== ENCOUNTER → 2023-10-29 12:22 | Outpatient (REF) | payer MEDICARE, MEDICAID, SELFPAY ==
[2023-10-29 13:47] LABS: Blood Urea Nitrogen 36 mg/dl (7-17); Calcium 9.6 mg/dl (8.4-10.2); Carbon Dioxide 26 mmol/L (22-30); Chloride 108 mmol/L (98-107); Glucose 110 mg/dl (70-99); Sodium 140 mmol/L (135-145); eGFR 49.24
== END ==
LOC: OLABN 12:22
PROVIDERS: ATTENDING PHYSICIAN Student in an Organized Health Care Education/Training Program
DX: I10 Essential (primary) hypertension (principal)
CPT/HCPCS: 36415; 80048

== ENCOUNTER → 2023-11-13 10:26 | Outpatient (REF) | payer MEDICARE, MEDICAID, SELFPAY ==
[2023-11-13 10:58] LABS: ALT (SGPT) 18 U/L (0-35); AST (SGOT) 26 U/L (14-36); Alkaline Phosphatase 59 U/L (38-126); Blood Urea Nitrogen 33 mg/dl (7-17); Calcium 9.7 mg/dl (8.4-10.2); Carbon Dioxide 26 mmol/L (22-30); Chloride 107 mmol/L (98-107); Glucose 104 mg/dl (70-99); HDL Cholesterol 33 mg/dl; LDL Cholesterol, Calculated 46 mg/dl; Potassium 4.7 mmol/L (3.5-5.1); Sodium 139 mmol/L (135-145); Total Bilirubin 0.4 mg/dl (0.2-1.3); Total Cholesterol 107 mg/dl (50-199); Total Protein 7.1 g/dl (6.3-8.2); Triglyceride 143 mg/dl (10-149); Very Low Density Lipoprotein 28 mg/dl (0-30)
== END ==
LOC: OLABN 10:26
PROVIDERS: ATTENDING PHYSICIAN Student in an Organized Health Care Education/Training Program
DX: I10 Essential (primary) hypertension (principal)
CPT/HCPCS: 36415; 80053; 80061

== ENCOUNTER → 2024-01-14 08:59 | Outpatient (REF) | payer MEDICARE, MEDICAID, SELFPAY ==
[2024-01-14 10:31] LABS: HDL Cholesterol 34 mg/dl; Triglyceride 144 mg/dl (10-149); Very Low Density Lipoprotein 28 mg/dl (0-30)
[2024-01-14 10:50] LABS: LDL Cholesterol, Calculated 50 mg/dl; Total Cholesterol 112 mg/dl (50-199)
== END ==
LOC: OLABN 08:59
PROVIDERS: ATTENDING PHYSICIAN Student in an Organized Health Care Education/Training Program
DX: I10 Essential (primary) hypertension (principal)
CPT/HCPCS: 36415; 80061

== ENCOUNTER → 2024-07-05 10:48 | Outpatient (REF) | payer MEDICARE, MEDICAID, SELFPAY ==
[2024-07-05 11:09] LABS: % Basophils 0.8 % (0-2); % Immature Granulocytes 0.3 % (0-0.5); % Lymphocytes 21.1 % (20.5-51.1); % Monocytes 11.4 % (1.7-9.3); % Neutrophils 58.4 % (42.2-75.2); Absolute Basophils 0.1 10^3/uL (0-0.2); Absolute Eosinophils 0.6 10^3/uL (0-0.7); Absolute Lymphocytes 1.5 10^3/uL (1.2-3.4); Absolute Monocytes 0.8 10^3/uL (0.1-0.6); Absolute Neutrophils 4.2 10^3/uL (1.4-6.5); Hematocrit 32.4 % (37.0-47.0); Hemoglobin 11.2 g/dL (12.0-16.0); Mean Corp Hgb Conc. 34.6 g/dL (33.0-37.0); Mean Corpuscular Hgb 30.9 pg (27.0-31.0); Mean Corpuscular Volume 89.3 fL (81.0-99.0); Mean Platelet Volume 10.6 fL (7.4-10.4); Nucleated Red Blood Cells % 0 %; Platelet Count 253 10^3/uL (130-400); Red Blood Cell Count 3.63 10^6/uL (4.20-5.40); Red Cell Dist. Width 13.4 % (11.5-14.5); White Blood Cell Count 7.2 10^3/uL (4.8-10.8)
[2024-07-05 11:25] LABS: ALT (SGPT) 44 U/L (0-35); AST (SGOT) 48 U/L (14-36); Albumin 4.4 g/dl (3.5-5.0); Alkaline Phosphatase 67 U/L (38-126); Blood Urea Nitrogen 37 mg/dl (7-17); Calcium 10.1 mg/dl (8.4-10.2); Carbon Dioxide 25 mmol/L (22-30); Chloride 103 mmol/L (98-107); Glucose 89 mg/dl (70-99); Potassium 4.7 mmol/L (3.5-5.1); Sodium 144 mmol/L (135-145); Total Bilirubin 0.5 mg/dl (0.2-1.3); Total Protein 7.2 g/dl (6.3-8.2); eGFR 40.05
[2024-07-05 19:50] LABS: Urine Albumin Trace (Neg - Trace); Urine Bilirubin Negative (Negative); Urine Character Very Cloudy (Clear); Urine Color Yellow; Urine Glucose Negative (Negative); Urine Ketone Negative (Negative); Urine Leukocyte 2+ (Negative); Urine Nitrite Positive (Negative); Urine Occult Blood Negative (Negative); Urine Urobilinogen Negative (Neg - 1+)
[2024-07-05 20:26] LABS: Urine Bacteria Moderate (Negative); Urine Squamous Cell 16-20 /LPF (Few); Urine White Cell >100 /HPF (0-5)
== END ==
LOC: OLABN 10:48
PROVIDERS: ATTENDING PHYSICIAN Student in an Organized Health Care Education/Training Program
DX: M62.81 Muscle weakness (generalized) (principal); R82.90 Unspecified abnormal findings in urine
CPT/HCPCS: 36415; 80053; 81003; 81015; 85025; 87077; 87086

== ENCOUNTER → 2024-11-11 11:00 | Outpatient (REF) | payer MEDICARE, MEDICAID, SELFPAY ==
[2024-11-11 17:22] LABS: % Basophils 1.4 % (0-2); % Eosinophils 5.1 % (0-6); % Immature Granulocytes 0.3 % (0-0.5); % Lymphocytes 19.9 % (20.5-51.1); % Neutrophils 63.3 % (42.2-75.2); Absolute Basophils 0.1 10^3/uL (0-0.2); Absolute Eosinophils 0.3 10^3/uL (0-0.7); Absolute Lymphocytes 1.3 10^3/uL (1.2-3.4); Absolute Monocytes 0.7 10^3/uL (0.1-0.6); Absolute Neutrophils 4.1 10^3/uL (1.4-6.5); Hematocrit 35.5 % (37.0-47.0); Hemoglobin 11.5 g/dL (12.0-16.0); Mean Corp Hgb Conc. 32.4 g/dL (33.0-37.0); Mean Corpuscular Hgb 30.7 pg (27.0-31.0); Mean Corpuscular Volume 94.7 fL (81.0-99.0); Mean Platelet Volume 10.8 fL (7.4-10.4); Nucleated Red Blood Cells % 0 %; Platelet Count 245 10^3/uL (130-400); Red Blood Cell Count 3.75 10^6/uL (4.20-5.40); Red Cell Dist. Width 13.3 % (11.5-14.5); White Blood Cell Count 6.5 10^3/uL (4.8-10.8)
[2024-11-11 17:39] LABS: ALT (SGPT) 38 U/L (0-35); AST (SGOT) 36 U/L (14-36); Albumin 4.4 g/dl (3.5-5.0); Alkaline Phosphatase 65 U/L (38-126); Blood Urea Nitrogen 39 mg/dl (7-17); Carbon Dioxide 25 mmol/L (22-30); Chloride 103 mmol/L (98-107); Glucose 119 mg/dl (70-99); Potassium 4.6 mmol/L (3.5-5.1); Sodium 139 mmol/L (135-145); Total Bilirubin 0.7 mg/dl (0.2-1.3); eGFR 44.08
== END ==
LOC: OLABN 11:00
PROVIDERS: ATTENDING PHYSICIAN Student in an Organized Health Care Education/Training Program
DX: E11.22 Type 2 diabetes mellitus with diabetic chronic kidney disease (principal); E11.42 Type 2 diabetes mellitus with diabetic polyneuropathy
CPT/HCPCS: 36415; 80053; 85025

== ENCOUNTER → 2024-12-23 11:18 | Outpatient (REF) | payer MEDICARE, MEDICAID, SELFPAY ==
[2024-12-23 12:16] LABS: Glycohemoglobin (HgbA1c) 5.7 % (4.0-5.6)
== END ==
LOC: OLABN 11:18
PROVIDERS: ATTENDING PHYSICIAN Student in an Organized Health Care Education/Training Program
DX: E11.22 Type 2 diabetes mellitus with diabetic chronic kidney disease (principal)
CPT/HCPCS: 36415; 83036

== ENCOUNTER → 2025-03-15 10:36 | Outpatient (REF) | payer MEDICARE, MEDICAID, SELFPAY ==
[2025-03-15 11:26] LABS: HDL Cholesterol 35 mg/dl; LDL Cholesterol, Calculated 61 mg/dl; Very Low Density Lipoprotein 21 mg/dl (0-30)
== END ==
LOC: OLABN 10:36
PROVIDERS: ATTENDING PHYSICIAN Student in an Organized Health Care Education/Training Program
DX: E78.5 Hyperlipidemia, unspecified (principal)
CPT/HCPCS: 36415; 80061